=== PATIENT | male | born 1955 | race Caucasian/White ===

== ENCOUNTER → 2020-12-11 | Outpatient (REF) | payer MEDICARE ==
[2020-12-11 14:17] LABS: APPEARANCE, URINE CLEAR (CLEAR); BACTERIA, URINE AUTO NEGATIVE (NEGATIVE); BILIRUBIN, URINE AUTO NEGATIVE (NEGATIVE); BLOOD, URINE BLOOD NEGATIVE (NEGATIVE); COLOR, URINE YELLOW (YELLOW); GLUCOSE, URINE (UA) AUTO NEGATIVE (NEGATIVE); KETONE, URINE AUTO NEGATIVE (NEGATIVE); LEUKOCYTE ESTERASE, URINE AUTO NEGATIVE (NEGATIVE); MUCUS, URINE SMALL (NEGATIVE); NITRITE, URINE AUTO NEGATIVE (NEGATIVE); PROTEIN, URINE AUTO NEGATIVE (NEGATIVE); RBC, URINE AUTO 1 /HPF (0-3); SPECIFIC GRAVITY URINE AUTO 1.019 (1.002-1.035); SQUAMOUS EPITHELIAL CELL UR AU 1 /HPF (0-6); UROBILINOGEN, URINE AUTO 0.2 mg/dL (0.0-2.0); WBC, URINE AUTO 1 /HPF (0-3)
== END ==
LOC: M SMT 13:32
PROVIDERS: ATTEND Nurse Practitioner Women's Health
DX: R97.20 Elevated prostate specific antigen [PSA] (principal); Z79.899 Other long term (current) drug therapy

== ENCOUNTER 2021-10-11 07:11 | Inpatient (IN) | payer MEDICARE ==
[~2021-10-11] VITALS: Ht 182.9 cm; Wt 141.2 kg
[~2021-10-11 07:11] MED LIST: ALLO10TA PO; D31000TA2 PO; DILT12SRCA PO; HEPARIN SOD (PORCINE) 5000UNITS/ML 1ML VIAL/SYRINGE SQ ONE; LR 1,000 ML IV ONE; XARE20TA PO; ceFAZolin SOD 1 GM in D5W MINI-BAG PLUS 50 ML IV ONE; ceFAZolin SOD 2 GM in IV 1 EA IV ONE
[2021-10-11] MEDS ORDERED: ACETAMINOPHEN TAB 650MG DOSE (2X325MG) PO PRN (08:00)
[2021-10-11] MEDS ORDERED: SCOPOLAMINE 1MG TRANSDERMAL PATCH TOP ONE (08:40)
[2021-10-11] MEDS ORDERED: LIDOCAINE 1% SDV 30ML VIAL As Ordered ONE (09:31)
[2021-10-11] MEDS ORDERED: BUPIVACAINE HCL 0.25% 30ML VIAL As Ordered ONE (09:31)
[2021-10-11] MEDS ORDERED: LIDOCAINE 2% 100MG/5ML SDV (FOR ANES.) As Ordered ONE (10:39)
[2021-10-11] MEDS ORDERED: MIDAZOLAM INJ 2MG/2ML VIAL (J2250 PER 1MG) As Ordered ONE ×2 (10:39→12:24)
[2021-10-11] MEDS ORDERED: METOCLOPRAMIDE INJ 10MG/2ML VIAL (J2765 PER 1) As Ordered ONE (10:39)
[2021-10-11] MEDS ORDERED: fentaNYL 100 MCG/2 ML INJECTION As Ordered ONE (10:39)
[2021-10-11] MEDS ORDERED: HYDROmorphone HCL 2MG/ML 1ML VIAL As Ordered ONE (10:39)
[2021-10-11] MEDS ORDERED: ACETAMINOPHEN 1000MG 100ML IV BTL (OFIRMEV) (J0131 PER 10MG) As Ordered ONE (10:39)
[2021-10-11] MEDS ORDERED: propofoL 200 MG/20 ML VIAL As Ordered ONE ×2 (10:40→11:18)
[2021-10-11] MEDS ORDERED: ROCURONIUM BROMIDE 50 MG/5 ML VIAL As Ordered ONE ×2 (10:40→11:14)
[2021-10-11] MEDS ORDERED: PHENYLephrine 500MCG 5ML (100MCG/ML) SYRINGE As Ordered ONE (10:40)
[2021-10-11] MEDS ORDERED: ONDANSETRON 4MG/2ML VIAL As Ordered ONE (10:40)
[2021-10-11] MEDS ORDERED: VASOPRESSIN INJ 20 UNITS/ML VIAL As Ordered ONE (11:32)
[2021-10-11] MEDS ORDERED: METF500T13 PO (12:52)
[2021-10-11] MEDS ORDERED: SUGAMMADEX SODIUM 500 MG/5 ML VIAL (BRIDION) As Ordered ONE (12:57)
[2021-10-11 15:58] LABS: HEMATOCRIT 44.2 % (42.0-52.0); HEMOGLOBIN 13.8 g/dl (13.5-17.5); MEAN CORPUSCULAR HEMOGLOBIN 28.3 pg (27.0-33.0); MEAN CORPUSCULAR HGB CONC 31.2 g/dl (32.0-36.5); MEAN CORPUSCULAR VOLUME 90.6 fl (80.0-96.0); PLATELET COUNT, AUTOMATED 313 10^3/uL (150-450); RED BLOOD COUNT 4.88 10^6/uL (4.30-6.10); WHITE BLOOD COUNT 22.8 10^3/uL (4.0-10.0)
[2021-10-11] MEDS ORDERED: fentaNYL 100 MCG/2 ML INJECTION IV PRN (16:15)
[2021-10-11] MEDS ORDERED: HYDROMORPHONE HCL 0.5 MG/ 0.5 ML SYRINGE (J1170 PER 1) IV PRN (16:15)
[2021-10-11] MEDS ORDERED: METOCLOPRAMIDE INJ 10MG/2ML VIAL (J2765 PER 1) IV PRN (16:15)
[2021-10-11] MEDS ORDERED: LR 1,000 ML IV SCH (16:15)
[2021-10-11] MEDS ORDERED: oxyCODONE 5MG TAB PO PRN (16:15)
[2021-10-11] MEDS ORDERED: ONDANSETRON 4MG/2ML VIAL IV PRN (16:15)
[2021-10-11] MEDS ORDERED: ceFAZolin SOD 1 GM in D5W MINI-BAG PLUS 50 ML IV SCH (16:30)
[2021-10-11 16:38] LABS: CALCIUM LEVEL 9.4 MG/DL (8.8-10.2); CREATININE FOR GFR 1.83 MG/DL (0.70-1.30); GLOMERULAR FILTRATION RATE 39.4 (>49); POTASSIUM SERUM 4.5 MEQ/L (3.5-5.1)
[2021-10-11] MEDS: ceFAZolin SOD 2 GM in D5W MINI-BAG PLUS 50 ML IV SCH (17:00)
[2021-10-11] MEDS: METOPROLOL 5 MG/5 ML VIAL IV PRN ×5 (17:09→17:43)
[2021-10-11] MEDS ORDERED: MED NOTE (17:14)
[2021-10-11] MEDS ORDERED: HOME MED LIST COMPLETE! XX SCH (17:15)
[2021-10-11] MEDS: ONDANSETRON 4MG/2ML VIAL IV PRN (17:28)
[2021-10-11] MEDS: NS 1,000 ML IV SCH (18:17)
[2021-10-11 18:30] VITALS: BP 111/77
[2021-10-11 19:00] VITALS: BP 120/78
[2021-10-11] MEDS: DOCUSATE SODIUM 100MG CAPSULE PO SCH ×2 (19:17→20:26)
[2021-10-11] MEDS: HEPARIN SOD (PORCINE) 5000UNITS/ML 1ML VIAL/SYRINGE SC SCH (19:23)
[2021-10-11 20:00] VITALS: BP 124/75
[2021-10-11] MEDS: PERCOCET 5MG/325MG TAB PO PRN (20:26)
[2021-10-11 21:00] VITALS: BP 116/74
[2021-10-11 22:00] VITALS: BP 115/74
[2021-10-11 23:00] VITALS: BP 117/75
[2021-10-12] VITALS (11 sets, daily range): BP systolic 115–137; BP diastolic 72–78; O2SAT 93–95
[2021-10-12] MEDS: ceFAZolin SOD 2 GM in D5W MINI-BAG PLUS 50 ML IV SCH (01:23)
[2021-10-12] MEDS: HEPARIN SOD (PORCINE) 5000UNITS/ML 1ML VIAL/SYRINGE SC SCH ×3 (01:23→18:28)
[2021-10-12] MEDS: NS 1,000 ML IV SCH (04:23)
[2021-10-12] MEDS: CIPROFLOXACIN 500MG TABLET PO SCH ×2 (05:21→18:28)
[2021-10-12] MEDS: PERCOCET 5MG/325MG TAB PO PRN ×3 (05:22→20:50)
[2021-10-12 06:41] LABS: HEMATOCRIT 38.5 % (42.0-52.0); HEMOGLOBIN 12.1 g/dl (13.5-17.5); MEAN CORPUSCULAR HEMOGLOBIN 28.2 pg (27.0-33.0); MEAN CORPUSCULAR HGB CONC 31.4 g/dl (32.0-36.5); MEAN CORPUSCULAR VOLUME 89.7 fl (80.0-96.0); PLATELET COUNT, AUTOMATED 253 10^3/uL (150-450); RED BLOOD COUNT 4.29 10^6/uL (4.30-6.10); WHITE BLOOD COUNT 16.1 10^3/uL (4.0-10.0)
[2021-10-12 07:07] LABS: CALCIUM LEVEL 8.8 MG/DL (8.8-10.2); CREATININE FOR GFR 1.82 MG/DL (0.70-1.30); GLOMERULAR FILTRATION RATE 39.6 (>49); POTASSIUM SERUM 4.3 MEQ/L (3.5-5.1)
[2021-10-12] MEDS: allopurinoL 300 MG TAB PO SCH (09:31)
[2021-10-12] MEDS: DOCUSATE SODIUM 100MG CAPSULE PO SCH ×2 (09:31→21:00)
[2021-10-12] MEDS ORDERED: DEXTROSE 50% 50 ML SYRINGE IV PRN (16:40)
[2021-10-12] MEDS ORDERED: GLUCOSE 4GM CHEW TABLET PO PRN (16:40)
[2021-10-12] MEDS ORDERED: GLUCAGON INJ 1MG VIAL SC PRN (16:40)
[2021-10-12 17:25] LABS: HEMOGLOBIN A1c 7.1 %
[2021-10-12] MEDS: HumaLOG INSULIN (NovoLOG) PER UNIT SC SCH ×2 (17:30→21:00)
[2021-10-12 17:37] LABS: CK-MB VALUE MASS 4.8 NG/ML (<3.6); MB/CK RELATIVE INDEX 1.15 (< OR =4)
[2021-10-12 17:43] LABS: CHOLESTEROL RISK RATIO 4.177 (<5); FREE T4 1.43 NG/DL (0.76-1.46); THYROID STIMULATING HORMONE 0.61 uIU/ML (0.358-3.740)
[2021-10-12] MEDS ORDERED: BACT800T5 PO (18:33)
[2021-10-12] MEDS ORDERED: PERCOCET PO (18:33)
[2021-10-13] VITALS (18 sets, daily range): BP systolic 123–141; BP diastolic 59–81; O2SAT 94–98
[2021-10-13] MEDS: HEPARIN SOD (PORCINE) 5000UNITS/ML 1ML VIAL/SYRINGE SC SCH ×3 (02:31→18:36)
[2021-10-13] MEDS: CIPROFLOXACIN 500MG TABLET PO SCH ×2 (06:14→18:35)
[2021-10-13] MEDS: HumaLOG INSULIN (NovoLOG) PER UNIT SC SCH ×4 (07:30→21:00)
[2021-10-13 08:49] LABS: HEMATOCRIT 38.8 % (42.0-52.0); MEAN CORPUSCULAR HEMOGLOBIN 28.2 pg (27.0-33.0); MEAN CORPUSCULAR HGB CONC 30.9 g/dl (32.0-36.5); MEAN CORPUSCULAR VOLUME 91.1 fl (80.0-96.0); PLATELET COUNT, AUTOMATED 222 10^3/uL (150-450); RED BLOOD COUNT 4.26 10^6/uL (4.30-6.10); WHITE BLOOD COUNT 13.6 10^3/uL (4.0-10.0)
[2021-10-13 09:13] LABS: CALCIUM LEVEL 9.3 MG/DL (8.8-10.2); CREATININE FOR GFR 1.78 MG/DL (0.70-1.30); GLOMERULAR FILTRATION RATE 40.7 (>49); POTASSIUM SERUM 4.4 MEQ/L (3.5-5.1)
[2021-10-13] MEDS: PERCOCET 5MG/325MG TAB PO PRN ×3 (09:18→22:08)
[2021-10-13] MEDS: allopurinoL 300 MG TAB PO SCH (09:19)
[2021-10-13] MEDS: DOCUSATE SODIUM 100MG CAPSULE PO SCH ×2 (09:19→22:08)
[2021-10-14] VITALS (20 sets, daily range): BP systolic 108–142; BP diastolic 54–87; O2SAT 82–96
[2021-10-14] MEDS: HEPARIN SOD (PORCINE) 5000UNITS/ML 1ML VIAL/SYRINGE SC SCH ×3 (02:54→18:29)
[2021-10-14 04:32] LABS: HEMATOCRIT 39.3 % (42.0-52.0); HEMOGLOBIN 12.1 g/dl (13.5-17.5); MEAN CORPUSCULAR HEMOGLOBIN 27.9 pg (27.0-33.0); MEAN CORPUSCULAR HGB CONC 30.8 g/dl (32.0-36.5); MEAN CORPUSCULAR VOLUME 90.8 fl (80.0-96.0); PLATELET COUNT, AUTOMATED 216 10^3/uL (150-450); RED BLOOD COUNT 4.33 10^6/uL (4.30-6.10); WHITE BLOOD COUNT 11.4 10^3/uL (4.0-10.0)
[2021-10-14 05:06] LABS: CALCIUM LEVEL 9.2 MG/DL (8.8-10.2); CREATININE FOR GFR 1.55 MG/DL (0.70-1.30); GLOMERULAR FILTRATION RATE 47.7 (>49); POTASSIUM SERUM 4.4 MEQ/L (3.5-5.1)
[2021-10-14] MEDS: CIPROFLOXACIN 500MG TABLET PO SCH ×2 (06:07→18:29)
[2021-10-14] MEDS: HumaLOG INSULIN (NovoLOG) PER UNIT SC SCH ×4 (06:18→21:00)
[2021-10-14] MEDS: ONDANSETRON 4MG/2ML VIAL IV PRN (09:15)
[2021-10-14] MEDS: DOCUSATE SODIUM 100MG CAPSULE PO SCH ×2 (10:10→20:58)
[2021-10-14] MEDS: allopurinoL 300 MG TAB PO SCH (10:13)
[2021-10-14] MEDS ORDERED: CARD240C5 PO (13:43)
[2021-10-14] MEDS ORDERED: LISI5TAB11 PO (13:46)
[2021-10-14] MEDS ORDERED: LASI20TA3 PO (13:46)
[2021-10-14] MEDS: FUROSEMIDE 20 MG TAB PO SCH (15:17)
[2021-10-14] MEDS ORDERED: PERCOCET PO (15:26)
[2021-10-14] MEDS ORDERED: BACT800T5 PO (15:26)
[2021-10-14] MEDS: PERCOCET 5MG/325MG TAB PO PRN ×2 (16:17→20:59)
[2021-10-15] VITALS: BP 141/74
[2021-10-15] MEDS: HEPARIN SOD (PORCINE) 5000UNITS/ML 1ML VIAL/SYRINGE SC SCH ×2 (02:00→08:38)
[2021-10-15 03:16] LABS: HEMATOCRIT 38.9 % (42.0-52.0); HEMOGLOBIN 12.1 g/dl (13.5-17.5); MEAN CORPUSCULAR HGB CONC 31.1 g/dl (32.0-36.5); PLATELET COUNT, AUTOMATED 263 10^3/uL (150-450); RED BLOOD COUNT 4.32 10^6/uL (4.30-6.10); WHITE BLOOD COUNT 11.8 10^3/uL (4.0-10.0)
[2021-10-15 03:39] LABS: CREATININE FOR GFR 1.6 MG/DL (0.70-1.30); POTASSIUM SERUM 4.3 MEQ/L (3.5-5.1)
[2021-10-15 04:00] VITALS: BP 109/74
[2021-10-15] MEDS: CIPROFLOXACIN 500MG TABLET PO SCH (06:20)
[2021-10-15] MEDS: PERCOCET 5MG/325MG TAB PO PRN (06:21)
[2021-10-15] MEDS: HumaLOG INSULIN (NovoLOG) PER UNIT SC SCH ×2 (07:30→12:00)
[2021-10-15 08:00] VITALS: BP 134/80
[2021-10-15] MEDS: FUROSEMIDE 20 MG TAB PO SCH (08:37)
[2021-10-15] MEDS: allopurinoL 300 MG TAB PO SCH (08:37)
[2021-10-15] MEDS: DOCUSATE SODIUM 100MG CAPSULE PO SCH (08:37)
[2021-10-15] MEDS ORDERED: CARD360C PO (09:42)
[2021-10-15] MEDS ORDERED: PERCOCET PO (09:59)
[2021-10-15 12:00] VITALS: BP 132/63
== END 2021-10-15 12:59 | disposition home health service (06) | DRG 707 ==
LOC: M OR 07:11 → M MSPAV 18:26 → M PCU 10-12 14:09
PROVIDERS: ADMIT Urology; ATTEND Urology
PROC: 07BC4ZZ Excision of Pelvis Lymphatic, Percutaneous Endoscopic Approach (ICD-10-PCS; 2021-10-11)
PROC: 8E0W4CZ Robotic Assisted Procedure of Trunk Region, Percutaneous Endoscopic Approach (ICD-10-PCS; 2021-10-11)
PROC: 0VT04ZZ Resection of Prostate, Percutaneous Endoscopic Approach (ICD-10-PCS; principal; 2021-10-11 08:30)
DX: C61 Malignant neoplasm of prostate (principal); I50.32 Chronic diastolic (congestive) heart failure; N17.9 Acute kidney failure, unspecified; N39.0 Urinary tract infection, site not specified; I48.91 Unspecified atrial fibrillation; I11.0 Hypertensive heart disease with heart failure; E78.5 Hyperlipidemia, unspecified; J44.9 Chronic obstructive pulmonary disease, unspecified; E11.9 Type 2 diabetes mellitus without complications; M10.9 Gout, unspecified; J45.909 Unspecified asthma, uncomplicated; E66.01 Morbid (severe) obesity due to excess calories; Z79.84 Long term (current) use of oral hypoglycemic drugs; Z87.891 Personal history of nicotine dependence; Z79.899 Other long term (current) drug therapy; Z79.01 Long term (current) use of anticoagulants